=== PATIENT | female | born 1995 | race American Indian/Alaskan Native ===

== ENCOUNTER 2019-07-22 15:26 | Emergency (ER) | payer SELFPAY ==
--- NOTE | 2019-07-22 16:00 | Event Note ---
ED Screening Note ED Screening Note: pt presents for N/V today no diarrhea hives which is resolving LNMP: 07/19/19 has been to the emergency room three times for hives has an appt with a PCP 07/28/19 This initial assessment/diagnostic orders/clinical plan/treatment(s) is/are subject to change based on patients health status, clinical progression and re- assessment by fellow clinical providers in the ED. Further treatment and workup at subsequent clinical providers discretion. Patient/guardian urged not to elope from the ED as their condition may be serious if not clinically assessed and managed.
[2019-07-22] MEDS ORDERED: SODIUM CHLORIDE 0.9% 1000 ML 1,000 ML IV ONE (17:22)
[2019-07-22] MEDS ORDERED: dexAMETHasone 4 MG/ML VIAL IV ONE (17:23)
[2019-07-22 18:53] LABS: Eosinophils % (Auto) 0.3 % (0.0-4.3); Hematocrit 34.1 % (30.3-42.9); Hemoglobin 11.3 gm/dl (10.1-14.3); Lymphocytes # (Auto) 1.7 K/mm3 (1.2-5.4); Lymphocytes % (Auto) 16.7 % (13.4-35.0); Mean Corpuscular HGB Conc 33 % (30-34); Mean Corpuscular Volume 86 fl (79-97); Monocytes # (Auto) 0.3 K/mm3 (0.0-0.8); Monocytes % (Auto) 2.7 % (0.0-7.3); Platelet Count 417 K/mm3 (140-440); Red Blood Count 3.99 M/mm3 (3.65-5.03); Red Cell Distribution Width 14.4 % (13.2-15.2)
--- NOTE | 2019-07-22 18:59 | Emergency Department Report ---
ED General Adult HPI - General Chief complaint: Nausea/Vomiting/Diarrhea Stated complaint: HARD TO BREATH/HIVES/FLU SYM Time Seen by Provider: 07/22/19 15:57 Source: EMS Mode of arrival: Ambulatory Limitations: No Limitations - History of Present Illness Initial comments: 24-year-old morbidly obese -[place] female reports to the emergency department complaining of diffuse hives which have been present for about the last week and half. She reports being seen at [facility] 3 with the last being in 2 days ago. She also reports some issues with nausea and vomiting which started 2 days ago after initiating the doxycycline she was prescribed for a little painful nodule under her right axillary region. States that the hives have been fluctuating of in nature coming in and colon despite her being compliant with medication regimen however today reports that the rash is the best it has ever been that she reports minimal rash to her torso with no pruritus. She reports no wheezing, no chest pain, no odynophagia or dysphagia. No fever, chills, sweats. She has been expressing some malaise and myalgia which she thinks may be related to the nausea and vomiting she's been experience. She had a mild decrease in her appetite but is negative to follow- up with the leather parts matcher as recommended by [facility]. She has not de partment on July 28 but felt she was getting worse today so she decided to come to our facility currently she is taking Atarax and Benadryl and doxycycline along with Tylenol - Related Data Previous Rx's Medication Instructions Recorded Last Taken Type Desloratadine [Clarinex] 5 mg PO DAILY #14 tablet 07/22/19 Unknown Rx Famotidine [Pepcid] 40 mg PO QHS #14 tablet 07/22/19 Unknown Rx Ondansetron [Zofran ODT TAB] 8 mg PO Q12HR #14 tab.rapdis 07/22/19 Unknown Rx predniSONE [Deltasone] 50 mg PO QDAY #5 tab 07/22/19 Unknown Rx Allergies Allergy/AdvReac Type Severity Reaction Status Date / Time No Known Allergies Allergy Unverified 07/22/19 15:28 ED Review of Systems ROS: Stated complaint: HARD TO BREATH/HIVES/FLU SYM Other details as noted in HPI Comment: All other systems reviewed and negative ED Past Medical Hx - Past Medical History Previous Medical History?: No Additional medical history: HIVES - Surgical History Past Surgical History?: Yes Additional Surgical History: KNEE - Social History Smoking Status: Never Smoker Substance Use Type: None - Medications Home Medications: Home Medications Medication Instructions Recorded Confirmed Last Taken Type Desloratadine [Clarinex] 5 mg PO DAILY #14 tablet 07/22/19 Unknown Rx Famotidine [Pepcid] 40 mg PO QHS #14 tablet 07/22/19 Unknown Rx Ondansetron [Zofran ODT TAB] 8 mg PO Q12HR #14 tab.rapdis 07/22/19 Unknown Rx predniSONE [Deltasone] 50 mg PO QDAY #5 tab 07/22/19 Unknown Rx ED Physical Exam - General Limitations: No Limitations General appearance: alert - Head Head exam: Present: atraumatic, normocephalic - Eye Eye exam: Present: normal appearance, PERRL Pupils: Present: normal accommodation - ENT ENT exam: Present: normal exam, normal orophraynx, mucous membranes dry, mucous membranes moist, other (airway patent, uvula midline was normal no angioedema) - Neck Neck exam: Present: normal inspection, full ROM. Absent: tenderness, meningismus, lymphadenopathy, thyromegaly - Respiratory Respiratory exam: Present: normal lung sounds bilaterally. Absent: respiratory distress - Cardiovascular Cardiovascular Exam: Present: regular rate, normal rhythm. Absent: systolic murmur, diastolic murmur, rubs, gallop - GI/Abdominal GI/Abdominal exam: Present: soft, normal bowel sounds - Extremities Exam Extremities exam: Present: normal inspection - Back Exam Back exam: Present: normal inspection - Neurological Exam Neurological exam: Present: alert, oriented X3, CN II-XII intact, normal gait - Psychiatric Psychiatric exam: Present: normal affect, normal mood - Skin Skin exam: Present: warm, dry, intact, normal color. Absent: rash, urticaria (no diffuse hives are currently noted. No cellulitis to the torso axillary region. Small nodule to the right axillary region.) ED Course Vital Signs 07/22/19 15:58 Temperature 99.0 F Pulse Rate 106 H Respiratory 20 Rate Blood Pressure 140/77 O2 Sat by Pulse 100 Oximetry ED Medical Decision Making - Lab Data Result diagrams: 07/22/19 18:00 - Medical Decision Making This patient presents with symptoms consistent with acute hypersensitivity reaction, likely acute allergic reaction. Presentation not consistent with acute anaphylaxis (lack of pulmonary, dermatologic, cardiovascular or GI symptoms, lack of hypotension or exposure to known allergen), angioedema, serum sickness (no recent drug exposure, lacks fevers, arthralgias), ingestion of preformed toxin. No evidence of airway compromise or shock at this time. Plan to treat for an allergic reaction with H1/H2 blockers, steroids. No indication for epinephrine at this time. Given lack of respiratory symptoms, no indication for EpiPen Rx. Plan: H1/H2 blockers, steroids, close hemodynamic monitoring, serial ryann ssessment Critical care attestation.: If time is entered above; I have spent that time in minutes in the direct care of this critically ill patient, excluding procedure time. ED Disposition Clinical Impression: Hives, Nausea & vomiting, Medication reaction Disposition: - TO HOME OR SELFCARE Is pt being admited?: No Does the pt Need Aspirin: No Condition: Stable Instructions: Acute Nausea and Vomiting (ED), Urticaria (ED) Referrals: AHMET SKAGGS MD [Staff Physician] - 2-3 Days (It is recommended that she keep her appointment with the leather parts matcher for further evaluation of hives in regards to your medication reaction and urine nausea and vomiting and may follow-up with the listed Dr.)
[2019-07-22] MEDS ORDERED: FAMOTIDINE 20 MG TAB PO ONE (19:03)
[2019-07-22] MEDS ORDERED: ONDANSETRON 4 MG/2 ML INJ IV STA (19:03)
[2019-07-22 19:05] LABS: Albumin 3.2 g/dL (3.9-5); BUN/Creatinine Ratio 13; Blood Urea Nitrogen 9 mg/dL (7-17); Calcium 8.7 mg/dL (8.4-10.2); Hemolysis Index 368
[2019-07-22 19:07] LABS: Alanine Aminotransferase 26 units/L (7-56)
[2019-07-22 20:53] LABS: HCG Qualitative,Urine Negative (Negative)
[2019-07-22 21:24] VITALS: BP 104/62
== END 2019-07-22 21:24 | disposition home or self-care (01) ==
LOC: ED 15:26
DX: L50.9 Urticaria, unspecified (principal); R11.2 Nausea with vomiting, unspecified; Z98.890 Other specified postprocedural states; Z79.899 Other long term (current) drug therapy
CPT/HCPCS: 36415; 80053; 81025; 85025; 96361; 96374; 96375; 99284; J1100; J2405; J7030

== ENCOUNTER 2019-07-24 13:49 | Emergency (ER) | payer SELFPAY ==
--- NOTE | 2019-07-24 13:59 | Emergency Department Report ---
Blank Doc - Documentation Documentation: 24-year-old female that presents with nausea and vomiting x3 days. This initial assessment/diagnostic orders/clinical plan/treatment(s) is/are subject to change based on patient's health status, clinical progression and re- assessment by fellow clinical providers in the ED. Further treatment and workup at subsequent clinical providers discretion. Patient/guardians urged not to elope from the ED as their condition may be serious if not clinically assessed and managed. Initial orders include: 1- Patient sent to [facility] for further evaluation and treatment 2- labs 3- UA
[2019-07-24 14:21] LABS: Hematocrit 32.7 % (30.3-42.9); Mean Corpuscular HGB Conc 34 % (30-34); Mean Corpuscular Volume 85 fl (79-97); Platelet Count 482 K/mm3 (140-440); Red Blood Count 3.87 M/mm3 (3.65-5.03); Red Cell Distribution Width 14.5 % (13.2-15.2)
[2019-07-24] MEDS ORDERED: ONDANSETRON 4 MG/2 ML INJ IV ONE (14:31)
[2019-07-24] MEDS ORDERED: LORazepam 2 MG/ML VIAL IV STA (14:31)
[2019-07-24] MEDS ORDERED: SODIUM CHLORIDE 0.9% 1000 ML 1,000 ML IV ONE (14:31)
--- NOTE | 2019-07-24 14:37 | Emergency Department Report ---
ED N/V/D HPI - General Chief complaint: Nausea/Vomiting/Diarrhea Stated complaint: VOMITING Time Seen by Provider: 07/24/19 13:58 Source: patient Mode of arrival: Ambulatory Limitations: No Limitations - History of Present Illness Initial comments: Yonatan is a 24 yo female without significant past medical hx who presents with nausea/vomiting for the past 3 days. Has been unable to eat or dink. Recently she had been treated for hives and facial swelling at outside hospital. Had hx of sore throat last Thursday. Now has lower central back pain. Main concern is the severe nausea/vomiting. No abdominal pain. Normally never sick. Unable to afford the $400 cost. No new exposures. Has hx of seasonal allergies. Denies any lifestyle changes or social stressors. Her mother is bedside. 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 She was supposed to complete her courses last week before winter. However, she became ill. She denies use of tobacco, alcohol, recreational drugs. No significant family hx. No hx of food, drug or dye allergy. I reviewed my colleague's note. She was seen at [facility] several times for hives. She was referred to an intelligence operations. She has an upcoming appt this week according to previous documentation. Has been treated with atarax, benadryl and doxycyline according to previous ED note. complaint: nausea, vomiting -: Gradual, days(s) (3) Description of Vomiting: food contents Associated Abdominal Pain: No Severity: severe Consistency: constant Improves with: none Worsens with: none Context: other (recent illness for the past wek) Associated Symptoms: nausea/vomiting, other (hives, lower back pain, sore throat, feet feel swollen) - Related Data Previous Rx's Medication Instructions Recorded Last Taken Type Promethazine [Phenergan SUPPOS] 25 mg OH Q6HR PRN #10 supp.rect 07/24/19 Unknown Rx Promethazine [Phenergan] 25 mg PO Q6HR PRN #10 tab 07/24/19 Unknown Rx Allergies Allergy/AdvReac Type Severity Reaction Status Date / Time No Known Allergies Allergy Unverified 07/22/19 15:28 ED Review of Systems ROS: Stated complaint: VOMITING Other details as noted in HPI Comment: All other systems reviewed and negative Constitutional: malaise ENT: throat pain Respiratory: denies: cough, shortness of breath Cardiovascular: denies: chest pain Gastrointestinal: nausea, vomiting. denies: abdominal pain, diarrhea Musculoskeletal: back pain Neurological: denies: headache, paresthesias, confusion ED Past Medical Hx - Past Medical History Previous Medical History?: Yes Additional medical history: HIVES - Surgical History Past Surgical History?: Yes Additional Surgical History: 2018 ACL reconstruction right knee - Family History Family history: no significant, other (parents, grandparents, siblings are healthy) - Social History Smoking Status: Never Smoker Substance Use Type: None - Medications Home Medications: Home Medications Medication Instructions Recorded Confirmed Last Taken Type Promethazine [Phenergan SUPPOS] 25 mg OH Q6HR PRN #10 supp.rect 07/24/19 Unknown Rx Promethazine [Phenergan] 25 mg PO Q6HR PRN #10 tab 07/24/19 Unknown Rx ED Physical Exam - General Limitations: No Limitations General appearance: alert, in no apparent distress, other (hyperventilating, appears anxious) - Head Head exam: Present: atraumatic, normocephalic - Eye Eye exam: Present: normal appearance - ENT ENT exam: Present: mucous membranes moist - Neck Neck exam: Present: normal inspection, full ROM - Respiratory Respiratory exam: Present: normal lung sounds bilaterally. Absent: respiratory distress, wheezes, rales, rhonchi - Cardiovascular Cardiovascular Exam: Present: regular rate, normal rhythm, normal heart sounds. Absent: systolic murmur, diastolic murmur, rubs, gallop - GI/Abdominal GI/Abdominal exam: Present: soft, normal bowel sounds. Absent: distended, tenderness, guarding, rebound - Extremities Exam Extremities exam: Present: normal inspection - Neurological Exam Neurological exam: Present: alert, oriented X3 - Psychiatric Psychiatric exam: Present: normal mood, anxious - Skin Skin exam: Present: warm, dry, intact, normal color. Absent: rash ED Course Vital Signs 07/24/19 07/24/19 07/24/19 14:02 14:24 14:26 Temperature 98.7 F 97.9 F Pulse Rate 95 H 78 Respiratory 18 16 16 Rate Blood Pressure 128/76 Blood Pressure 124/60 [Right] O2 Sat by Pulse 100 100 100 Oximetry 07/24/19 07/24/19 15:41 17:45 Temperature Pulse Rate 84 83 Respiratory 16 16 Rate Blood Pressure Blood Pressure 120/81 126/74 [Right] O2 Sat by Pulse 100 100 Oximetry ED Medical Decision Making - Lab Data Result diagrams: 07/24/19 14:05 07/24/19 14:05 Laboratory Results - last 24 hr 07/24/19 07/24/19 07/24/19 14:05 14:05 14:05 WBC 12.0 H RBC 3.87 Hgb 11.0 Hct 32.7 MCV 85 MCH 28 MCHC 34 RDW 14.5 Plt Count 482 H Add Manual Diff Complete Total Counted 100 Seg Neuts % (Manual) 57.0 Band Neutrophils % 1.0 Lymphocytes % (Manual) 34.0 Reactive Lymphs % (Man) 0 Monocytes % (Manual) 3.0 Eosinophils % (Manual) 0 Basophils % (Manual) 0 Metamyelocytes % 3.0 Myelocytes % 2.0 Promyelocytes % 0 Blast Cells % 0 Nucleated RBC % Not Reportable Seg Neutrophils # Man 6.8 Band Neutrophils # 0.1 Lymphocytes # (Manual) 4.1 Abs React Lymphs (Man) 0.0 Monocytes # (Manual) 0.4 Eosinophils # (Manual) 0.0 Basophils # (Manual) 0.0 Metamyelocytes # 0.4 Myelocytes # 0.2 Promyelocytes # 0.0 Blast Cells # 0.0 WBC Morphology Not Reportable Hypersegmented Neuts Not Reportable Hyposegmented Neuts Not Reportable Hypogranular Neuts Not Reportable Smudge Cells Not Reportable Toxic Granulation Not Reportable Toxic Vacuolation Not Reportable Dohle Bodies Not Reportable Pelger-Huet Anomaly Not Reportable Sarai Rods Not Reportable Platelet Estimate Consistent w auto Clumped Platelets Not Reportable Plt Clumps, EDTA Not Reportable Large Platelets Not Reportable Giant Platelets Not Reportable Platelet Satelliting Not Reportable Plt Morphology Comment Not Reportable RBC Morphology Normal Dimorphic RBCs Not Reportable Polychromasia Not Reportable Hypochromasia Not Reportable Poikilocytosis Not Reportable Anisocytosis Not Reportable Microcytosis Not Reportable Macrocytosis Not Reportable Spherocytes Not Reportable Pappenheimer Bodies Not Reportable Sickle Cells Not Reportable Target Cells Not Reportable Tear Drop Cells Not Reportable Ovalocytes Not Reportable Helmet Cells Not Reportable Best-Hauula Bodies Not Reportable [place] Rings Not Reportable Carlie Cells Not Reportable Bite Cells Not Reportable Crenated Cell Not Reportable Elliptocytes Not Reportable Acanthocytes (Spur) Not Reportable Rouleaux Not Reportable Hemoglobin C Crystals Not Reportable Schistocytes Not Reportable Malaria parasites Not Reportable Dario Bodies Not Reportable Hem Pathologist Commnt No Sodium 139 Potassium 3.6 D Chloride 105.5 Carbon Dioxide 22 Anion Gap 15 BUN 8 Creatinine 0.7 Estimated GFR > 60 BUN/Creatinine Ratio 11 Glucose 93 Calcium 8.5 Total Bilirubin 0.30 AST 22 ALT 41 Alkaline Phosphatase 64 Total Protein 6.5 Albumin 3.2 L Albumin/Globulin Ratio 1.0 HCG, Qual Negative Urine Color Urine Turbidity Urine pH Ur Specific Ranger Urine Protein Urine Glucose (UA) Urine Ketones Urine Blood Urine Nitrite Urine Bilirubin Urine Urobilinogen Ur Leukocyte Esterase Urine WBC (Auto) Urine RBC (Auto) Amorphous Crystals Urine Mucus Urine Opiates Screen Urine Methadone Screen Ur Barbiturates Screen Ur Phencyclidine Scrn Ur Amphetamines Screen U Benzodiazepines Scrn Urine Cocaine Screen U Marijuana (THC) Screen Drugs of Abuse Note 07/24/19 07/24/19 16:22 16:22 WBC RBC Hgb Hct MCV MCH MCHC RDW Plt Count Add Manual Diff Total Counted Seg Neuts % (Manual) Band Neutrophils % Lymphocytes % (Manual) Reactive Lymphs % (Man) Monocytes % (Manual) Eosinophils % (Manual) Basophils % (Manual) Metamyelocytes % Myelocytes % Promyelocytes % Blast Cells % Nucleated RBC % Seg Neutrophils # Man Band Neutrophils # Lymphocytes # (Manual) Abs React Lymphs (Man) Monocytes # (Manual) Eosinophils # (Manual) Basophils # (Manual) Metamyelocytes # Myelocytes # Promyelocytes # Blast Cells # WBC Morphology Hypersegmented Neuts Hyposegmented Neuts Hypogranular Neuts Smudge Cells Toxic Granulation Toxic Vacuolation Dohle Bodies Pelger-Huet Anomaly Sarai Rods Platelet Estimate Clumped Platelets Plt Clumps, EDTA Large Platelets Giant Platelets Platelet Satelliting Plt Morphology Comment RBC Morphology Dimorphic RBCs Polychromasia Hypochromasia Poikilocytosis Anisocytosis Microcytosis Macrocytosis Spherocytes Pappenheimer Bodies Sickle Cells Target Cells Tear Drop Cells Ovalocytes Helmet Cells Best-Hauula Bodies [place] Rings Carlie Cells Bite Cells Crenated Cell Elliptocytes Acanthocytes (Spur) Rouleaux Hemoglobin C Crystals Schistocytes Malaria parasites Dario Bodies Hem Pathologist Commnt Sodium Potassium Chloride Carbon Dioxide Anion Gap BUN Creatinine Estimated GFR BUN/Creatinine Ratio Glucose Calcium Total Bilirubin AST ALT Alkaline Phosphatase Total Protein Albumin Albumin/Globulin Ratio HCG, Qual Urine Color Yellow Urine Turbidity Cloudy Urine pH 9.0 H Ur Specific Ranger 1.015 Urine Protein <15 mg/dl Urine Glucose (UA) Neg Urine Ketones Tr Urine Blood Sm Urine Nitrite Neg Urine Bilirubin Neg Urine Urobilinogen < 2.0 Ur Leukocyte Esterase Neg Urine WBC (Auto) 2.0 Urine RBC (Auto) 3.0 Amorphous Crystals 1+ Urine Mucus Few Urine Opiates Screen Presumptive negative Urine Methadone Screen Presumptive negative Ur Barbiturates Screen Presumptive negative Ur Phencyclidine Scrn Presumptive negative Ur Amphetamines Screen Presumptive negative U Benzodiazepines Scrn Presumptive negative Urine Cocaine Screen Presumptive negative U Marijuana (THC) Screen Presumptive negative Drugs of Abuse Note Disclamer - Medical Decision Making Ms. Rhodes presents with hx of hives, recent sore throat and back pain. Today has persistent nausea vomiting without abdominal pain. Treated with IV diphenhydramine, IV haloperidol 2 mg dose, IVF, IV Zofran. She did not have vomiting in the emergency department. She did have persistent nausea and retching. I have prescribed promethazine tablets as well as promethazine suppositories. She has follow-up with allergy clinic this week. Her mother's concern for the hives which have not recurred recently. I reviewed the labs. Chemistry is within normal limits. Mild leukocytosis attributed to recent steroid use. She briefly took a course of doxycycline without completing the medication suggested duration for a lump in her right axilla which has improved. After 5 hours of treatment and evaluation she is discharged home in stable condition. DDX: IBS, , influenza, cyclical vomiting syndrome, Vital signs are stable have been stable throughout her ED observation. Critical care attestation.: If time is entered above; I have spent that time in minutes in the direct care of this critically ill patient, excluding procedure time. ED Disposition Clinical Impression: Nausea & vomiting Disposition: [id number] TO HOME OR SELFCARE Is pt being admited?: No Does the pt Need Aspirin: No Condition: Stable Instructions: Acute Nausea and Vomiting (ED) Prescriptions: Promethazine [Phenergan] 25 mg PO Q6HR PRN #10 tab PRN Reason: Nausea Promethazine [Phenergan SUPPOS] 25 mg [place] Q6HR PRN #10 supp.rect PRN Reason: Nausea Referrals: PRIMARY CAREMD [Primary Care Provider] - 3-5 Days AHMET SKAGGS MD [Staff Physician] - 3-5 Days [facility] [Outside] - 3-5 Days
[2019-07-24 14:44] LABS: Alanine Aminotransferase 41 units/L (7-56); Albumin 3.2 g/dL (3.9-5); BUN/Creatinine Ratio 11; Blood Urea Nitrogen 8 mg/dL (7-17); Calcium 8.5 mg/dL (8.4-10.2); Hemolysis Index 12
[2019-07-24 15:27] LABS: Band Neutrophils # (Manual) 0.1 K/mm3; Basophils % (Manual) 0 % (0.0-1.8); Eosinophils % (Manual) 0 % (0.0-4.3); Myelocytes # (Manual) 0.2 K/mm3; Total Cells Counted 100
[2019-07-24 15:29] LABS: Platelet Estimate Consistent w Auto; RBC Morphology Normal
[2019-07-24] MEDS ORDERED: diphenhydrAMINE 50 MG/ML VIAL IV ONE (16:03)
[2019-07-24] MEDS ORDERED: LORazepam 2 MG/ML VIAL IV ONE (16:04)
[2019-07-24] MEDS ORDERED: HALOPERIDOL LACTATE 5 MG/1 ML INJ IV STA (16:34)
[2019-07-24 16:43] LABS: Amphetamine Screen,Urine PRESUMPTIVE NEGATIVE; Benzodiazepines Screen,Urine PRESUMPTIVE NEGATIVE; Cannabinoid Screen,Urine PRESUMPTIVE NEGATIVE; Cocaine Screen,Urine PRESUMPTIVE NEGATIVE; Methadone Screen,Urine PRESUMPTIVE NEGATIVE; Opiate Screen,Urine PRESUMPTIVE NEGATIVE
[2019-07-24 16:47] LABS: Amorphous Crystals,Urine 1+; Bilirubin,Urine NEG (Negative); Blood,Urine SM (Negative); Color,Urine Yellow (Yellow); Mucus,Urine FEW /HPF; Protein,Urine <15 mg/dL mg/dL (Negative); Urobilinogen,Urine < 2.0 mg/dL (<2.0)
[2019-07-24 20:16] VITALS: BP 120/77
== END 2019-07-24 20:16 | disposition home or self-care (01) ==
LOC: ED 13:49
DX: R11.2 Nausea with vomiting, unspecified (principal); Z98.890 Other specified postprocedural states
CPT/HCPCS: 36415; 80053; 80307; 81001; 84703; 85007; 85025; 96361; 96374; 96375; 96376; 99283; J1200; J1630; J2060; J2405; J7030